=== PATIENT | male | born 1970 | race Caucasian/White ===

== ENCOUNTER 2016-03-23 08:34 | Day surgery (SDC) | payer OTHER ==
[2016-03-23] VITALS (11 sets, daily range): BP systolic 115–155; BP diastolic 71–97; PULSE 56–75; RESP 3–17; O2SAT 95–98
[~2016-03-23] VITALS: Ht 177.8 cm; Wt 111.1 kg
[~2016-03-23 08:34] MED LIST: Dexamethasone 10 mg/mL Inj IV ONE; Lactated Ringer's 1,000 ML IV ONE; MULT-1018 PO; OMEG-38 PO; vitamin d
[2016-03-23] MEDS ORDERED: fentaNYL-PF 50 mCg/mL 2 mL Inj ONE (08:35)
[2016-03-23] MEDS ORDERED: Ondansetron 2 mg/mL 2 mL Inj ONE (08:35)
[2016-03-23] MEDS ORDERED: MetoCLOpramide 5 mg/mL 2 mL Inj ONE (08:35)
[2016-03-23] MEDS ORDERED: Propofol 10,000 mCg/mL 20 mL Inj ONE (08:35)
[2016-03-23] MEDS ORDERED: Dexamethasone Inj 20 MG in 0.9% Sodium Chloride-Pha MIX 50 ML IV ONE (09:30)
--- NOTE | 2016-03-23 10:41 | PCM.HPANE ---
Patient Data Surgeon Admitting Provider: Attending Provider:Chris Abreu MD Primary Care Physician:Mera Woo MD Other Provider:[facility] Reason for Visit Hypertrophy Of Tonsils HYPERTROPHY OF TONSILS Ht/WT & BMI Height (Feet): 5 Height (Inches): 10.00 Weight (Kilograms): 111.100 Body Mass Index 35.00 Allergies Coded Allergies: No Known Allergies (Unverified , 03/20/16) Past Anesthesia History Anesthesia History: Positive for:: Abnormal Airway (tonsilar hypertrophy current admission problem), Fam Anesthesia Reaction (mother- cannot recall actual problem), Denies:: Anesthesia Reactions (no prior surgery) Diabetes History Hx Diabetes?: No MRSA MRSA: No Medications Hypertension Medication: No Home Meds Incl Beta Oscar: No Reported Medications Multivitamin (Multi Vitamin Daily)1 Each Tablet1 Each PO DAILY 30 Days Ref 0 03/20/16 [place]-3/Dha/Epa/Fish Oil (Fish Oil 1,000 mg Softgel)1 Each Capsule1 Each PO DAILY 03/20/16 [vitamin d] 1999 No Conflict Check2,000 Units DAILY 03/20/16 History History of ENT Problems?: Yes HEENT History: Positive for:: Abnormal Airway (tonsilar hypertrophy current admission problem) Sinus Problem Denies:: Cataracts Glaucoma Hearing Problem Cardiovascular History: Denies:: AICD Abdominal Aortic Aneurism Atrial Fibrillation Chest Pain Edema Heart Murmur Hypertension Irregular Heartbeat Pacemaker Peripheral Vascular Hx of Respiratory Problem?: No Respiratory History: Denies:: Asthma COPD Emphysema Pneumonia Tuberculosis Use of Inhalers / NEBS Hx Neurologic Problems?: No Neurological History: Denies:: Alzheimer's Disease Dementia Dizziness Headaches Multiple Sclerosis Parkinson's Disease Seizures TIA Hx of GI Problems?: No Gastrointestinal History: Denies:: Cirrhosis Diverticulitis Gall Bladder Disease Gastroesphageal Reflux Gastrointestinal Bleeding Heartburn Hepatitis Hiatal Hernia Liver Disease Rectal Bleeding Hx of Problems?: No Genitourinary History: Denies:: Kidney Stones Urinary Tract Infection Male Hx: Denies:: Prostate Problems Scrotal Mass Testicular Surgery Skin History: Denies:: History Skin Disorders? Pressure Ulcers Hx Musculoskeletal Problems?: No Musculoskeletal History: Denies:: Back Injury Degenerative Joint Fibromyalgia Joint Replacement Musculoskeletal Trauma Myasthenia Gravis Osteoarthritis Systemic Lupus Hx of Psycho/Social Problems?: No Psycho Social History: Denies:: Anxiety Hx Depression Hx Surgeries?: No Hx Any Other Health Problems?: Yes Other History: Denies:: Cancer Thyroid Disease History Blood Transfusions: Positive for:: Accept Blood Products? Denies:: Blood Transfusions Hx Diabetes: No Hx Alcohol Use: YesAlcoholic Drinks Per Day: one drink dailyHx Substance Use: NoHave You Smoked inLast 12 mo: No Stop/Bang Treated for Sleep Apnea?: No Do You Have a CPAP Machine?: No S-Snoring: Do You Snore Loudly: Yes P-Blood Pressure: treated: No B- Body Mass Index > 35 kg/m2: Yes A- Age over 50: No N- Neck Large Circumference: Yes G- Gender Male: Yes [place] Risk Assessment: High Risk, =/>3 Yes Risk Assessment Category Category 1A: Patient has history of documented sleep apnea, and HAS NOT received any narcotic, sedative or anesthesia administration during this stay. Category 1B: Patient has history of documented sleep apnea, and HAS received any narcotic , sedative or anesthesia administration during this stay Category 2: Patient has SUSPECTED Obstructive Sleep Apnea, and HAS received any narcotic , sedative or anesthesia administration during this stay. Category 3: Patient has SUSPECTED Obstructive Sleep Apnea and HAS NOT received narcotic, sedative or anesthesia administration during this stay. Category 4: Outpatient in Procedural Areas with known sleep apnea or who screen positive for High Risk via the STOP/BANG questionnaire. Exam Exam Vital Signs Vital Signs Date Time Temp Pulse Resp B/P Pulse Ox O2 Delivery O2 Flow Rate FiO2 03/23/16 09:19 35.9 59 12 124/77 95 Room Air 03/23/16 09:06 35.9 59 12 124/77 95 Room Air General Appearance: Oriented X3 HEENT/AIRWAY: MP 2, MP 3 Lungs: Normal Air Movement Heart: Regular Rate/Rhythm Meds/Labs/Diagnostics Admission Meds Current Medications Lactated Ringer's (Lr) 1,000 ml @ 120 mls/hr Q8H20M ONCE IV Last administered on 03/23/16t 09:00; Start 03/23/16 at 05:00; Stop 03/23/16 at 13:19 Plan Impression Patient chart reviewed, patient interviewed and anesthestic plan with risks, benefits, and alternatives discussed, and informed consent obtained. NPO Status: 9pm ASA Physical Status: ASA2 Mod Systemic Disease Anesthetic Plan: GA Bene/Risks/Altern/Consents: Yes HP Complete Prior to Induction: Yes Onofre Schwartz MD Mar 23, 2016 10:41
[2016-03-23] MEDS ORDERED: Bupivacaine-MPF 0.25%/EPI 30 mL Inj INJ ONE (11:00)
[2016-03-23] MEDS ORDERED: Lactated Ringer's 500 ML IV PRN (11:15)
[2016-03-23] MEDS ORDERED: Lactated Ringer's 1,000 ML IV SCH (11:15)
[2016-03-23] MEDS ORDERED: Dexamethasone 4 mg/mL Inj IVPUSH PRN (11:15)
[2016-03-23] MEDS ORDERED: Phenylephrine 10,000 mCg/mL Inj IVPUSH PRN (11:15)
[2016-03-23] MEDS ORDERED: EPHEDrine Sulfate 50 mg/mL Inj IVPUSH PRN (11:15)
[2016-03-23] MEDS ORDERED: HYDROmorphone 1 mg/mL Inj IVPUSH PRN (11:15)
[2016-03-23] MEDS ORDERED: Ondansetron 2 mg/mL 2 mL Inj IVPUSH PRN (11:15)
[2016-03-23] MEDS ORDERED: MetoCLOpramide 5 mg/mL 2 mL Inj IVPUSH PRN (11:15)
[2016-03-23] MEDS: fentaNYL-PF 50 mCg/mL 2 mL Inj IVPUSH PRN ×2 (11:48→12:00)
[2016-03-23] MEDS ORDERED: HYDROcodone-APAP 7.5-325 mg/15 mL 15 mL Solution ONE (12:15)
--- NOTE | 2016-03-23 15:39 | OP ---
[address] [address] OPERATIVE REPORT PATIENT: JULIENNE SOLOMON : 1970 MR#: [id number] ADMIT: 03/23/2016 JOB ID: [id number] DATE OF SURGERY: SURGEON: Julienne Abreu MD. PREOPERATIVE DIAGNOSIS(ES): Chronic tonsillitis with obstructing hypertrophy. POSTOPERATIVE DIAGNOSIS(ES): Chronic tonsillitis with obstructing hypertrophy. PROCEDURE: Tonsillectomy. HISTORY AND INDICATIONS: A 45-year-old gentleman with mild obstructive sleep apnea, enlarged tonsils, recurrent tonsillitis. PROCEDURE AND FINDINGS: Patient taken to the operating room, placed in supine position on the operating table. General endotracheal anesthesia was induced. Tonsil mouth gag was inserted and used to expose the oropharynx. [place] tonsils were 2 to 3+ enlarged. The tonsil pillars were significantly redundant. The uvula was moderately elongate. The tonsil pillars were injected with 0.25% Marcaine, 1:100,000 epinephrine. The right tonsil was grasped at superior pole with curved Allis and retracted medially. With the scissor and suction cautery, tonsillectomy was performed including removal of a portion of the anterior pillar which is redundant. The same procedure was carried on the left side. The thin membranous redundant portion of the uvula is amputated. Patient is awakened and extubated in the operating room, returned to recovery room in good condition. ESTIMATED BLOOD LOSS: Less than 10 cc. PATHOLOGIC SPECIMENS: None. COMPLICATIONS: None.
--- NOTE | 2016-03-24 07:49 | PCM.ANEP1 ---
Post Anesthesia Phase 1 PACU Phase 1 Assessment Anesthetic Administered: GA Level of Alertness: Awake, talking Pain: No Nausea or Vomiting: No Airway Device: Oralpharangeal Airway Oxygen Delivery: Room Air Lungs: Normal Air Movement Onofre Schwartz MD Mar 24, 2016 07:49
--- NOTE | 2016-03-24 07:49 | PCM.ANEP2 ---
Post Anesthesia Evaluation ASA/CMS Post Anesthesia VS in Patient's Normal Range?: Yes Resp Stable; Airway Patent?: Yes CV Function & Hydration Stable: Yes Mental Status Recovered?: Yes Pain control Satisfactory?: Yes N/V Control Satisfactory?: Yes Onofre Schwartz MD Mar 24, 2016 07:49
== END 2016-03-23 23:59 | disposition home or self-care (01) ==
LOC: SAS 08:34
PROVIDERS: ATTEND Otolaryngology Facial Plastic Surgery
DX: J35.01 Chronic tonsillitis (principal); G47.33 Obstructive sleep apnea (adult) (pediatric)
CPT/HCPCS: 42826; J1100; J2405; J2765; J7120